=== PATIENT | female | born 1980 | race Two or more races ===

== ENCOUNTER 2016-11-14 11:01 | Day surgery (SDC) | payer MEDICAID ==
[2016-11-14] MEDS ORDERED: LACTATED RINGERS 1,000 ML ONE ×2 (11:02→12:56)
[2016-11-14] MEDS ORDERED: IV START KIT ONE (11:02)
[2016-11-14] MEDS ORDERED: LACTATED RINGERS 1,000 ML IV SCH ×2 (12:00→12:30)
[2016-11-14] MEDS ORDERED: MIDAZOLAM HCL 1 MG/ML 2ML VIAL ONE (12:04)
[2016-11-14] MEDS ORDERED: MORPHINE SULFATE 10 MG/ML SYRINGE ONE (12:16)
[2016-11-14] MEDS ORDERED: PROMETHAZINE HCL 25 MG/ML VIAL IM PRN (12:25)
[2016-11-14] MEDS ORDERED: NALOXONE HCL 0.4 MG/ML VIAL IV PRN (12:25)
[2016-11-14] MEDS ORDERED: METOCLOPRAMIDE HCL 5 MG/ML 2ML VIAL ONE (12:25)
[2016-11-14] MEDS ORDERED: ONDANSETRON 4 MG/2ML 2 ML VIAL ONE (12:25)
[2016-11-14] MEDS ORDERED: LABETALOL HCL 5 MG/ML 20ML VIAL IV PRN (12:25)
[2016-11-14] MEDS ORDERED: ATROPINE SULFATE 0.4 MG/1 ML VIAL IV PRN (12:25)
[2016-11-14] MEDS ORDERED: SUCCINYLCHOLINE CHL 20 MG/ML DOSE ONE (12:25)
[2016-11-14] MEDS ORDERED: PROPOFOL 40 ML IV ONE (12:25)
[2016-11-14] MEDS ORDERED: ONDANSETRON 4 MG/2ML 2 ML VIAL IV PRN ×2 (12:25→13:20)
[2016-11-14] MEDS ORDERED: KETOROLAC TROMETHAMINE 30 MG/ML 1 ML VIAL ONE (12:25)
[2016-11-14] MEDS ORDERED: MEPERIDINE 25 MG/ML SYRINGE IV PRN (12:25)
--- NOTE | 2016-11-14 12:42 | PCMBPN ---
Brief Post Op Note: Date of Procedure: 11/14/16 Start Time: [] Preoperative Diagnosis: 1. [missed ] Postoperative Diagnosis: 1. [Same] Procedure: [suction D&E] Surgeon: Billie Joyce DO Assist:[] Anesthesia: [general] Findings: [13 week sized uterus] Condition: [stable] Complications: [none] IV Fluids: [1000] mLs of LR [] Urine Output: [200] mLs Estimated Blood Loss: [400] mLs Tourniquet Time: [N/A] Specimens: [products of conception] Implants: [] Drains: [N/A]
[2016-11-14] MEDS ORDERED: MEPERIDINE 25 MG/ML SYRINGE ONE (12:55)
[2016-11-14] MEDS: MORPHINE SULFATE 4 MG/ML SYRINGE IV PRN ×2 (13:04→13:17)
[2016-11-14] MEDS ORDERED: MORPHINE SULFATE 4 MG/ML SYRINGE ONE (13:05)
[2016-11-14] MEDS ORDERED: KETOROLAC TROMETHAMINE 30 MG/ML 1 ML VIAL IV PRN (13:20)
[2016-11-14] MEDS ORDERED: DIPHENHYDRAMINE HCL 50 MG/1 ML VIAL IV PRN (13:20)
[2016-11-14] MEDS ORDERED: ACETAMINOPHEN 325 MG TABLET PO PRN (13:20)
[2016-11-14] MEDS ORDERED: IBUPROFEN 800 MG TABLET PO PRN (13:20)
[2016-11-14] MEDS ORDERED: ACETAMINOPHEN 325 MG TABLET ONE (14:36)
--- NOTE | 2016-11-14 17:48 | OP ---
IDA MABRY [id number] DATE OF : 1980 DATE OF PROCEDURE: 11/14/2016 PREOPERATIVE DIAGNOSIS: Missed . POSTOPERATIVE DIAGNOSIS: Missed . PROCEDURE: SUCTION D&E. SURGEON: Dr. Billie Joyce ANESTHESIA: General. FINDINGS: A 13 week sized uterus. CONDITION: Stable. IV FLUIDS: 1,000 mL of lactated Ringer's. URINE OUTPUT: 200 ESTIMATED BLOOD LOSS: 400 mL TOURNIQUET TIME: None. SPECIMENS: Products of conception. IMPLANTS: None. DRAINS: None. PROCEDURE: The patient was taken back to the OR with IV fluids running where general anesthesia was easily obtained. She was prepped and draped in the dorsal lithotomy position in a normal sterile fashion. A weighted speculum was placed in the posterior aspect of the vagina. A right inguinal retractor was placed in the anterior aspect of the vagina. The cervix was identified and grasped with a single-tooth tenaculum. The cervix was sequentially dilated up to a size 14 and a size 14 hard-curved suction was then gently introduced into the uterine cavity. The suction was applied and several passes were made. All products were removed from the uterus. Once all products were removed from the uterus, the procedure was determined to be complete. All instruments were removed from the patient's vagina. Her cervix was noted to be hemostatic. She was easily aroused from anesthesia and transferred to recovery in stable condition.
--- NOTE | 2016-11-18 13:27 | SURGPATH ---
[facility] [address] [place] [id number] Patient Name: IDA MABRY V. MR#: [id number] : 1980 Gender: F Specimen #: [id number] Collected: 11/14/2016 Received: 11/17/2016 Reported: 11/18/2016 Submitting Phys: POLO MARISCAL Copy To Phys: [facility] Clinical History / Pre-Operative Diagnosis: 13 weeks incomplete Specimen Source / Surgical Procedure Performed: Products of conception Interpretation: PRODUCTS OF CONCEPTION: - IMMATURE CHORIONIC VILLI, INFLAMED DECIDUA, AND GESTATIONAL ENDOMETRIUM CONSISTENT WITH PRODUCTS OF CONCEPTION. - NO SOMATIC TISSUE IDENTIFIED. - NO EVIDENCE OF MALIGNANCY. Electronically Signed Out Moreno Aggarwal M.D., Ph.D. Gross Description: The specimen is received in formalin labeled with the patient's name and "products of conception". The specimen consists of a 105 g, 9.0 x 9.0 x 5.0 cm aggregate of coleman-brown soft tissue, blood, and tissue. The sex is indeterminate. The foot length is 1.4 cm consistent with a gestational age of 13-14 weeks. A-B. call center support representative KIARA Galarza Microscopic Description: Examination of multiple sections from the products of conception shows fragments of immature chorionic villi, inflamed decidua, and gestational endometrium. No somatic tissue is seen. There is no evidence of malignancy. 1: [id number] O03.9
== END 2016-11-14 15:49 | disposition home or self-care (01) ==
LOC: SDC 11:01
PROVIDERS: ATTEND Obstetrics & Gynecology
PROC: 10D17ZZ Extraction of Products of Conception, Retained, Via Natural or Artificial Opening (ICD-10-PCS; principal; 2016-11-14)
DX: O02.1 Missed abortion (principal); Z3A.13 13 weeks gestation of pregnancy
CPT/HCPCS: 59820; J2175; J2270 ×2; J2765; J1885; A9270; J2250; J2405; J7120 ×2